=== PATIENT | female | born 1975 | race African-American/Black ===

== ENCOUNTER 2016-12-22 11:23 | Emergency (ER) | payer SELFPAY ==
[~2016-12-22] VITALS: Ht 170.2 cm; Wt 67.6 kg
[2016-12-22 11:25] VITALS: BP 127/68
[2016-12-22] MEDS ORDERED: CYCL10TA2 PO (12:34)
[2016-12-22] MEDS ORDERED: METH4TAB2 PO (12:34)
[2016-12-22] MEDS ORDERED: FAMO-63 PO (12:34)
[2016-12-22] MEDS ORDERED: TRIA15OI TP (12:34)
[2016-12-22] MEDS ORDERED: DIPH25CA58 PO (12:34)
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
[2016-12-22 12:44] LABS: BILIRUBIN,URINE NEGATIVE (NEG); GLUCOSE,URINE NEGATIVE (NEG); NITRITE,URINE NEGATIVE (NEG); PH,URINE 6.5; PROTEIN,URINE NEGATIVE (NEG-TRACE); UROBILINOGEN,URINE 0.2 mg/dL (0.2 mg/dL)
[2016-12-22] MEDS ORDERED: ACET-704 PO (12:48)
[2016-12-22 13:00] LABS: BACTERIA,URINE MOD /HPF (0-FEW); RBC,URINE 0 /HPF (0-2); SQUAMOUS EPITHELIAL CELL,UR MANY /LPF
== END 2016-12-22 12:57 | disposition home or self-care (01) ==
LOC: ER 11:23
DX: M79.1 Myalgia (principal); L24.89 Irritant contact dermatitis due to other agents; J45.909 Unspecified asthma, uncomplicated; Z88.0 Allergy status to penicillin; Z88.1 Allergy status to other antibiotic agents; Z88.2 Allergy status to sulfonamides; Z88.6 Allergy status to analgesic agent; V89.2XXA Person injured in unspecified motor-vehicle accident, traffic, initial encounter; Y92.413 State road as the place of occurrence of the external cause; Y93.89 Activity, other specified; Y99.8 Other external cause status
CPT/HCPCS: 81001; 81025; 99283